=== PATIENT | male | born 1950 | race Two or more races ===

== ENCOUNTER 2022-03-16 01:11 | Emergency (ER) | payer OTHER ==
[~2022-03-16] VITALS: Ht 167.6 cm; Wt 66.2 kg
[2022-03-16] MEDS ORDERED: ZOFRAN8 MG PO (01:23)
[2022-03-16] MEDS ORDERED: BENADRYL25 MG PO (01:23)
== END 2022-03-16 12:40 | disposition home or self-care (01) ==
LOC: ER 01:11
DX: E86.0 Dehydration (principal); R19.7 Diarrhea, unspecified